=== PATIENT | female | born 1980 | race African-American/Black ===

== ENCOUNTER 2021-11-27 18:05 | Emergency (ER) | payer BC ==
[2021-11-27] MEDS ORDERED: DIPHTH,PERTUSS(ACELL),TET 0.5 ML DISP.SYRIN IM ONE ×2 (18:33→18:56)
[2021-11-27 18:36] VITALS: BP 141/98; PULSE 90; TEMP 99; BMI 34.2
[2021-11-27] MEDS ORDERED: CEPHALEXIN MONOHYDRATE 500 MG CAPSULE (UD) PO ONE (20:01)
[2021-11-27] MEDS ORDERED: CEPHALEXIN MONOHYDRATE 500 MG CAPSULE (UD) ONE (20:03)
== END 2021-11-27 20:08 | disposition home or self-care (01) ==
LOC: FER 18:05
PROC: 3E0234Z Introduction of Serum, Toxoid and Vaccine into Muscle, Percutaneous Approach (ICD-10-PCS; principal; 2021-11-27)
DX: S09.93XA Unspecified injury of face, initial encounter (principal); W01.0XXA Fall on same level from slipping, tripping and stumbling without subsequent striking against object, initial encounter
CPT/HCPCS: 70450-TC; 70486-TC; 73110-TC-LT-FY; 73130-TC-LT-FY; 90715; 99285-25

== ENCOUNTER 2024-05-28 03:06 | Emergency (ER) | payer BC ==
[2024-05-28 03:17] VITALS: PULSE 90; RESP 20; BMI 34.8
[2024-05-28] MEDS ORDERED: ACETAMINOPHEN 325 MG TABLET (FP) ONE (03:32)
[2024-05-28] MEDS: ACETAMINOPHEN 500 MG TABLET (FP) PO ONE (03:33)
[2024-05-28] MEDS ORDERED: AMOXICILLIN 250 MG CAPSULE ONE (03:53)
[2024-05-28] MEDS: AMOXICILLIN 500 MG CAPSULE (FP) PO ONE (03:56)
[2024-05-28 03:57] VITALS: BP 152/106; TEMP 98.2
== END 2024-05-28 03:59 | disposition home or self-care (01) ==
LOC: JER 03:06
DX: J02.0 Streptococcal pharyngitis (principal); R59.0 Localized enlarged lymph nodes; R50.9 Fever, unspecified; Z20.822 Contact with and (suspected) exposure to COVID-19
CPT/HCPCS: 0241U-QW; 87070; 87651; 99283-25